=== PATIENT | male | born 1985 | race Asian ===

== ENCOUNTER → 2017-01-03 | Outpatient (CLI) | payer OTHER ==
--- NOTE | 2017-01-03 16:06 | DIAGNOSTIC IMAGING REPORT ---
RIGHT THUMB 3 VIEWS HISTORY: Right thumb pain. COMPARISON: None. FINDINGS: A 1 mm punctate density adjacent to the ulnar base of the proximal phalanx may be artifact. This is not confirmed on the additional views. No definite acute fracture or dislocation within the right thumb. Soft tissues are unremarkable. No radiopaque foreign bodies. IMPRESSION: No acute fracture or dislocation within the right thumb. Electronically signed by: Florentin Vines M.D. 01/03/2017 4:04 PM Dictated Date/Time: 01/03/2017 4:02 PM
== END | disposition home or self-care (01) ==
LOC: C.RAD1850 15:29
PROVIDERS: ATTEND Nurse Practitioner Adult Health
DX: M79.644 Pain in right finger(s) (principal)